=== PATIENT | male | born 1975 | race American Indian/Alaskan Native ===

== ENCOUNTER 2016-11-21 11:24 | Emergency (ER) | payer OTHER ==
[~2016-11-21] VITALS: Ht 180.3 cm; Wt 110.0 kg
[2016-11-21] MEDS ORDERED: LIDOCAINE 1%, 20ML SQ ONE (12:00)
[2016-11-21 13:12] VITALS: BP 126/76
== END 2016-11-21 14:37 | disposition home or self-care (01) ==
LOC: ED 14:00
DX: S01.81XA Laceration without foreign body of other part of head, initial encounter (principal); F10.121 Alcohol abuse with intoxication delirium; Y90.9 Presence of alcohol in blood, level not specified; Y04.0XXA Assault by unarmed brawl or fight, initial encounter; Y93.89 Activity, other specified; Y92.098 Other place in other non-institutional residence as the place of occurrence of the external cause; Y99.8 Other external cause status
CPT/HCPCS: 12013

== ENCOUNTER 2018-10-09 13:50 | Emergency (ER) | payer MEDICAID ==
[~2018-10-09] VITALS: Ht 180.3 cm; Wt 91.0 kg
--- NOTE | 2018-10-09 14:39 | NUR ---
PT FOUND NEAR HOMELESS HALF-WAY INTOXICATED AND UNABLE TO STAND. VSS. ON 2LT NC DUE TO SEDATION. WILL MONITOR.
[2018-10-09 14:48] VITALS: BP 123/80
--- NOTE | 2018-10-09 15:12 | NUR ---
PT AWAKES EASILY. COOPERATIVE.
--- NOTE | 2018-10-09 16:00 | NUR ---
REPORT RECEIVED, CARE ASSUMED. PT SLEEPING, RESPS EVEN AND UNLABORED.
--- NOTE | 2018-10-09 16:51 | NUR ---
PT CONTINUES RESTING, PERIODICALLY AWAKENS, CONFUSED WHEN AWAKE. FALL ASLEEP EASILY.
--- NOTE | 2018-10-09 18:00 | NUR ---
PT AWAKENS INTERMITTENTLY. UNABLE TO AMBULATE. PO'S PROVIDED.
--- NOTE | 2018-10-09 19:04 | NUR ---
PT YELLING, BELIGERENT, SLURRED SPEECH AND UNABLE TO AMBULATE. PT MOVED TO ED ROOM 29. REPORT TO SATURNINO NUNN.
--- NOTE | 2018-10-09 19:18 | NUR ---
Pt found at main RN station ambulating with steady gait, pt redirected back to room, IV removed. When asked what his address is pt states "[address]", states this is in [place], states he is here visiting his sister but unable to give RN an address in [place], pt given many cranberry juices, pt put leftover sandwich and garbage neatly on plate and walked it to RN station to be disposed of. Pt again redirected back to room and on gurney with more juice
--- NOTE | 2018-10-09 19:41 | NUR ---
Chart up for DC, pt back on vito [facility]cmahon, will attempt to DC again soon when pt can given an address
--- NOTE | 2018-10-09 21:09 | NUR ---
Pt ambulated to registration desk with steady gait, pt resfuses cab voucher after multiple attempts. Pt on phone attempting to call sister for address. Registration has cab voucher to assist pt when he gets a valid address. Pt alert and oriented x4 upon dc.
--- NOTE | 2018-10-09 21:12 | NUR ---
Pt dc'd with all belongings he came with in room
== END 2018-10-09 21:15 | disposition home or self-care (01) ==
LOC: ED 19:23
DX: F10.129 Alcohol abuse with intoxication, unspecified (principal); Y90.9 Presence of alcohol in blood, level not specified
CPT/HCPCS: 99283

== ENCOUNTER 2019-04-23 08:10 | Emergency (ER) | payer MEDICAID ==
[~2019-04-23] VITALS: Ht 180.3 cm; Wt 90.4 kg
[2019-04-23 08:20] VITALS: BP 117/90
--- NOTE | 2019-04-23 08:51 | NUR ---
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
[2019-04-23] MEDS ORDERED: NEOSPORIN OINT. PKT 1 PACKET ONE (09:06)
--- NOTE | 2019-04-23 09:10 | NUR ---
EDT at bedside for wound care.
[2019-04-23] MEDS ORDERED: NEOSPORIN OINT. PKT 1 PACKET TP ONE (09:30)
== END 2019-04-23 09:42 | disposition home or self-care (01) ==
LOC: ED 09:36
DX: L84 Corns and callosities (principal)
CPT/HCPCS: 99282